=== PATIENT | male | born 1990 | race Caucasian/White ===

== ENCOUNTER 2018-08-24 12:53 | Emergency (ER) | payer SELFPAY ==
--- NOTE | 2018-08-24 13:15 | ER Document Report ---
HPI - HPI Patient complains to provider of: pruritic rash Onset: Other - 2 weeks Pain Level: 4 Context: 27 yo male with pruritic bites arms, waist, legs. Onset while staying with a friend. Saw tiny black bugs. Itches worse at night. Associated Symptoms: None Exacerbated by: Denies Relieved by: Denies Similar symptoms previously: No Recently seen / treated by doctor: No - ROS ROS below otherwise negative: Yes Systems Reviewed and Negative: Yes All other systems reviewed and negative Past Medical History - General Information source: Patient - Social History Smoking Status: Current Every Day Smoker Lives with: Family Family History: Reviewed & Not Pertinent Psychiatric Medical History: Reports: Hx Anxiety Surgical Hx: Negative - Immunizations Hx Diphtheria, Pertussis, Tetanus Vaccination: Yes - unk Hx Pneumococcal Vaccination: 11/28/00 Vertical Provider Document - CONSTITUTIONAL Agree With Documented VS: Yes Exam Limitations: No Limitations General Appearance: No Apparent Distress - INFECTION CONTROL TRAVEL OUTSIDE OF THE [place] IN LAST 30 DAYS: No - NEURO Level of Consciousness: Awake - DERM Integumentary: Rash - papular crusted isolated lesions suspicious for scabies, arms, legs, waist. 2 tinea lesions on left chest. Course - Vital Signs Vital signs: Temp Pulse Resp BP Pulse Ox 98.8 F 99 16 127/82 H 98 08/24/18 13:11 08/24/18 13:11 08/24/18 13:11 08/24/18 13:11 08/24/18 13:11 Discharge - Discharge Clinical Impression: Tinea corporis, Scabies Condition: Good Disposition: HOME, SELF-CARE Instructions: Antibiotic Shot ([facility]), Scabies ([facility]), Skin Fungus ([facility]), Topical Antifungal ([facility]) Additional Instructions: The Lamisil that she bought will work for the left knee skin fungus, rub in 1 inch past the border 3 times a day for a week The element cream is used to kill the scabies mite. Apply neck to toes between the fingers and toes including the groin and wash off in 12 hours See the wireless communications engineer if symptoms persist Prescriptions: Permethrin [Elimite] 60 gm TP ONCE PRN #60 cream.gm. PRN Reason: Referrals: MOODY CRAWFORD DO [ACTIVE STAFF] - Follow up as needed
[2018-08-24 13:38] VITALS: BP 127/82
== END 2018-08-24 13:27 | disposition home or self-care (01) ==
LOC: ER 12:53
DX: B86 Scabies (principal); B35.4 Tinea corporis; F17.200 Nicotine dependence, unspecified, uncomplicated
CPT/HCPCS: 99281

== ENCOUNTER 2019-04-19 08:22 | Emergency (ER) | payer SELFPAY ==
--- NOTE | 2019-04-19 09:28 | ER Document Report ---
HPI - HPI Patient complains to provider of: rash Time Seen by Provider: 04/19/19 08:51 Onset: Yesterday Onset/Duration: Persistent Severity: Severe Pain Level: 5 - itching Context: Patient presents emergency department with pruitic rash mostly on his arms some on his trunk and some on his ankles. He reports it started last night. He reports he is not sure where the source is. He denies new meds new laundry detergent. Reports he saw some bugs flying around. Reports he has a history of scabies in the past and thought it might be that. Denies recent trip. Reports he just moved into a new apartment and has new furniture. he has a and son and reports no rash on them. Denies other symptoms such as fever vomiting diarrhea. Patient took off his shoes and emptied the contents on the floor saying he thought he saw some bugs in them, no bugs visualized Associated Symptoms: None Exacerbated by: Denies Relieved by: Denies Similar symptoms previously: Yes Recently seen / treated by doctor: No - CONSTITUTIONAL Constitutional: DENIES: Fever, Chills - EENT EENT: DENIES: Sore Throat, Ear Pain, Eye problems - NEURO Neurology: DENIES: Headache, Weakness, Vision blurred, Dizzinesss / Vertigo - CARDIOVASCULAR Cardiovascular: DENIES: Chest pain - RESPIRATORY Respiratory: DENIES: Trouble Breathing, Coughing - GASTROINTESTINAL Gastrointestinal: DENIES: Abdominal Pain, Black / Bloody Stools - URINARY Urinary: DENIES: Dysuria, Urgency, Frequency - MUSCULOSKELETAL Musculoskeletal: DENIES: Extremity pain Past Medical History - General Information source: Patient - Social History Smoking Status: Current Every Day Smoker Chew tobacco use (# tins/day): No Frequency of alcohol use: Occasional Drug Abuse: None Lives with: Family Family History: Reviewed & Not Pertinent Patient has suicidal ideation: No Patient has homicidal ideation: No Renal/ Medical History: Denies: Hx Peritoneal Dialysis Psychiatric Medical History: Reports: Hx Anxiety Surgical Hx: Negative - Immunizations Hx Diphtheria, Pertussis, Tetanus Vaccination: Yes - unk Hx Pneumococcal Vaccination: 11/28/00 Vertical Provider Document - CONSTITUTIONAL Agree With Documented VS: Yes Exam Limitations: No Limitations General Appearance: WD/WN, No Apparent Distress - INFECTION CONTROL TRAVEL OUTSIDE OF THE [place] IN LAST 30 DAYS: No - HEENT HEENT: Atraumatic, Normocephalic - NECK Neck: Supple - RESPIRATORY Respiratory: No Respiratory Distress - CARDIOVASCULAR Cardiovascular: Regular Rate - MUSCULOSKELETAL/EXTREMETIES Musculoskeletal/Extremeties: AMISHA, TOÑO - NEURO Level of Consciousness: Awake, Alert, Appropriate Motor/Sensory: No Motor Deficit - DERM Integumentary: Warm, Dry, Rash - scattered very faint erythemic flat rash noted to bilateral arms left hand with a few scattered erythemic areas that resemble insect bites to the trunk Course - Re-evaluation Re-evalutation: 04/19/19 1 possibly ricardo noted to left hand. Will treat for scabies. Patient was instructed on directions. Instructed on importance of cleaning his house washing bedsheets and such in hot water. He was also instructed to check with his and child to make sure that they were not having same symptoms. He verbalized understanding to all instructions. - Vital Signs Vital signs: Temp Pulse Resp BP Pulse Ox 97.9 F 78 18 119/69 95 04/19/19 08:28 04/19/19 08:28 04/19/19 08:28 04/19/19 08:28 04/19/19 08:28 Discharge - Discharge Clinical Impression: Rash Condition: Stable Disposition: HOME, SELF-CARE Instructions: Use of Diphenhydramine, Scabies ([facility]) Additional Instructions: *You have been treated for rash, possibly scabies *Apply the medication as prescribed *Monitor the site for signs of infection such as pain, redness, swelling, warmth *Clean your sheets/house as discussed *Follow up with a primary care provider within one week for recheck *Return to ED for signs of infection, worsening condition, changes, needs Prescriptions: Permethrin [Elimite] 60 gm TP ONCE PRN #1 cream.gm. PRN Reason:
[2019-04-19 09:59] VITALS: BP 106/72
== END 2019-04-19 10:00 | disposition home or self-care (01) ==
LOC: ER 08:22
DX: R21 Rash and other nonspecific skin eruption (principal); F17.200 Nicotine dependence, unspecified, uncomplicated
CPT/HCPCS: 99282

== ENCOUNTER 2019-04-22 13:33 | Emergency (ER) | payer SELFPAY ==
--- NOTE | 2019-04-22 14:33 | ER Document Report ---
ED General - General Chief Complaint: Skin Sore(s) Stated Complaint: SORES ON BODY Time Seen by Provider: 04/22/19 14:31 Mode of Arrival: Ambulatory Information source: Patient Notes: This is a 28-year-old man with a recent history of scabies diagnosis (treated with permethrin) who presents to the emergency room with worsening lesions mostly on his upper extremity. He does report some in between his fingers. He states he did see a scabies-like insect on his skin. TRAVEL OUTSIDE OF THE [place] IN LAST 30 DAYS: No - HPI Onset: Last week Onset/Duration: Gradual Quality of pain: No pain, Dull Severity: None Pain Level: Denies Associated symptoms: Chest pain, Headache, Shortness of breath Exacerbated by: Denies Relieved by: Denies Similar symptoms previously: Yes Recently seen / treated by doctor: Yes - Related Data Allergies/Adverse Reactions: No Known Allergies Allergy (Verified 04/22/19 13:37) Past Medical History - General Information source: Patient - Social History Smoking Status: Current Every Day Smoker Cigarette use (# per day): No Chew tobacco use (# tins/day): No Frequency of alcohol use: Social Drug Abuse: Marijuana Lives with: Family Family History: Reviewed & Not Pertinent Patient has suicidal ideation: No Patient has homicidal ideation: No - Medical History Medical History: Negative Renal/ Medical History: Denies: Hx Peritoneal Dialysis Psychiatric Medical History: Reports: Hx Anxiety - Immunizations Hx Diphtheria, Pertussis, Tetanus Vaccination: Yes - unk Hx Pneumococcal Vaccination: 11/28/00 Review of Systems - Review of Systems Constitutional: denies: Chills, Fever EENT: No symptoms reported Cardiovascular: No symptoms reported Respiratory: No symptoms reported Gastrointestinal: No symptoms reported Genitourinary: No symptoms reported Male Genitourinary: No symptoms reported Musculoskeletal: No symptoms reported Skin: See HPI Hematologic/Lymphatic: No symptoms reported Neurological/Psychological: No symptoms reported Physical Exam - Vital signs Notes: Physical exam: GENERAL: HEAD: Atraumatic, normocephalic. EYES: Pupils equal round and reactive to light, extraocular movements intact, sclera anicteric, conjunctiva are normal. ENT: TMs normal, nares patent, oropharynx clear without exudates. Moist mucous membranes. NECK: Normal range of motion, supple without obvious mass or JVD. LUNGS: Breath sounds clear to auscultation bilaterally and equal. No wheezes rales or rhonchi. HEART: Regular rate and rhythm without murmurs, rubs or gallops. ABDOMEN: Soft, normoactive bowel sounds. No tenderness to palpation. No guarding, no rebound. No masses appreciated. EXTREMITIES: Normal range of motion, no pitting or edema. No clubbing or cyanosis. NEUROLOGICAL: Cranial nerves II through XII grossly intact. Normal speech, moving all extremities. PSYCH: Normal mood, normal affect. SKIN: She has multiple lesions on the upper extremities and some on the lower extremities where there is some localized erythema there is no obvious tracking. He does have some that involve in between the fingers. None that involve underneath the arms or in the axilla. There is none in the feet. Discharge - Discharge Clinical Impression: Scabies Condition: Stable Disposition: HOME, SELF-CARE Additional Instructions: As we discussed, I do not want you to take the permethrin for another 1 week because your last dose was 3 days ago. If you still have lesions, then you can use the cream as directed. In the meantime, use the Atarax for itching of the skin. I am concerned that you are getting secondary infections because of the skin picking that you are doing. I want you to wash daily with Hibiclens soap (sold in the pharmacy). Do not use the Hibiclens around your eyes or mouth. Use it on the skin lesions themselves. Use the bacitracin ointment daily on the lesions. Follow-up with a air surveillance operator: [facility] [place] [id number] , [place], [place] [phone] Prescriptions: Bacitracin Zinc [Bacitracin Oint 15 gm] 1 applic TP DAILY #1 tube Hydroxyzine HCl [Atarax 25 mg Tablet] 1 - 2 tab PO QID #25 tablet Permethrin [Elimite] 60 gm TP ONCE PRN #1 cream.gm. PRN Reason:
== END 2019-04-22 15:07 | disposition home or self-care (01) ==
LOC: ER 13:33
DX: B86 Scabies (principal); F17.200 Nicotine dependence, unspecified, uncomplicated
CPT/HCPCS: 99282

== ENCOUNTER 2019-04-24 12:04 | Emergency (ER) | payer SELFPAY ==
--- NOTE | 2019-04-24 12:39 | ER Document Report ---
ED Medical Screen (RME) - General Chief Complaint: Skin Sore(s) Stated Complaint: RASH/SKIN ISSUE Time Seen by Provider: 04/24/19 12:22 Mode of Arrival: Ambulatory Information source: Patient Notes: 28-year-old male presented to ED for complaint of sores to both arms both legs and abdomen and chest. He has been here multiple times and diagnosed with scabies and started on permethrin. He has no rash between his toes or between his fingers. He states he does use IV drugs heroin oxycodone oxycodone and other drugs. Patient denies using meth. Patient is alert oriented respirations regular and unlabored speaking in full sentences he does have multiple sores but no sores to his back or the back of his legs. I have greeted and performed a rapid initial assessment of this patient. A comprehensive ED assessment and evaluation of the patient, analysis of test results and completion of medical decision making process will be conducted by an additional ED providers. Dictation of this chart was performed using voice recognition software; therefore, there may be some unintended grammatical errors. TRAVEL OUTSIDE OF THE [place] IN LAST 30 DAYS: No - Related Data Allergies/Adverse Reactions: No Known Allergies Allergy (Verified 04/24/19 12:08) Past Medical History - Social History Chew tobacco use (# tins/day): No Frequency of alcohol use: Social Drug Abuse: Heroin, Prescription drugs Renal/ Medical History: Denies: Hx Peritoneal Dialysis Psychiatric Medical History: Reports: Hx Anxiety - Immunizations Hx Diphtheria, Pertussis, Tetanus Vaccination: Yes - unk Physical Exam - Vital signs Vitals: Temp Pulse Resp BP Pulse Ox 98 F 74 18 137/67 H 99 04/24/19 12:13 04/24/19 12:13 04/24/19 12:13 04/24/19 12:13 04/24/19 12:13 Course - Vital Signs Vital signs: Temp Pulse Resp BP Pulse Ox 98 F 74 18 137/67 H 99 04/24/19 12:13 04/24/19 12:13 04/24/19 12:13 04/24/19 12:13 04/24/19 12:13
[2019-04-24 12:56] LABS: ABSOLUTE EOSINOPHILS # (AUTO) 0.1 10^3/uL (0.0-0.6); ABSOLUTE MONOCYTES (AUTO) 0.5 10^3/uL (0.1-1.4); ABSOLUTE NEUT (AUTO) 6.6 10^3/uL (1.7-8.2); BASOPHILS % (AUTO) 0.5 % (0-2); EOSINOPHILS % (AUTO) 0.6 % (0-6); HEMATOCRIT 51.2 % (37.9-51.0); LYMPHOCYTES % (AUTO) 21.6 % (13-45); MEAN CORPUSCULAR HEMOGLOBIN 27.8 pg (27.0-33.4); MEAN CORPUSCULAR HGB CONC 33.2 g/dL (32.0-36.0); MEAN CORPUSCULAR VOLUME 84 fl (80-97); PLATELET COUNT 248 10^3/uL (150-450); RED BLOOD COUNT 6.12 10^6/uL (4.35-5.55); RED CELL DISTRIBUTION WIDTH 12.7 % (11.5-14.0); SEGMENTED NEUTROPHILS % (AUTO) 72.3 % (42-78); TOTAL CELLS COUNTED % (AUTO) 100 %; WHITE BLOOD COUNT 9.1 10^3/uL (4.0-10.5)
[2019-04-24 13:18] LABS: ALANINE AMINOTRANSFERASE 57 U/L (21-72); ALBUMIN 5.4 g/dL (3.5-5.0); ALKALINE PHOSPHATASE 98 U/L (38-126); ANION GAP 15 (5-19); ASPARTATE AMINO TRANSFERASE 43 U/L (17-59); BILIRUBIN,DIRECT 0.3 mg/dL (0.0-0.4); BLOOD UREA NITROGEN 14 mg/dL (7-20); CARBON DIOXIDE 27 mmol/L (22-30); CHLORIDE 101 mmol/L (98-107); GLUCOSE 93 mg/dL (75-110); POTASSIUM 4.4 mmol/L (3.6-5.0); SODIUM 143.3 mmol/L (137-145); TOTAL PROTEIN 8.7 g/dL (6.3-8.2)
[2019-04-24] MEDS ORDERED: DOXYCYCLINE HYCLATE 100 MG TABLET PO ONE (15:04)
--- NOTE | 2019-04-24 15:27 | ER Document Report ---
ED General - General Chief Complaint: Skin Sore(s) Stated Complaint: RASH/SKIN ISSUE Time Seen by Provider: 04/24/19 12:22 Primary Care Provider: [facility] [Provider Group] - Follow up in 3-5 days (primary care) Mode of Arrival: Ambulatory Notes: Patient is a 28-year-old male with history of IV drug use that presents to the emergency department for chief complaint of itching lesions. Patient states he has had skin sores on his arms and legs over the past 3 weeks, is been treated for scabies twice without improvement, he decided come back to the emergency department to have this reevaluated. Most of them are on his forearms and a few on his legs, and some on his abdomen. He has not noticed any on his back. He states he feels what he thinks is a bite, and then started scratching that area to the point it is excoriated. He had an chocolate refining roller check at his house, and was told there was nothing in the home such as bedbugs, or any evidence of other infestation. Past Medical History: IV drug use Past Surgical History: Denies surgical history Social History: Admits to smoking cigarettes, denies alcohol use, admits to injecting heroin, occasional marijuana use, and occasional cocaine use Family History: Reviewed and noncontributory for presenting illness Allergies: Reviewed, see documented allergy list. REVIEW OF SYSTEMS: Other than noted above, the 12 point review of systems was reviewed with the patient and were negative, all pertinent findings are included in the HPI. PHYSICAL EXAMINATION: Vital signs reviewed, nursing noted reviewed. GENERAL: Well-appearing, well-nourished and in no acute distress. HEAD: Atraumatic, normocephalic. EYES: Eyes appear normal, extraocular movements intact, sclera anicteric, conjunctiva are normal. ENT: nares patent, oropharynx clear without exudates. Moist mucous membranes. NECK: Normal range of motion, supple without lymphadenopathy LUNGS: Breath sounds clear to auscultation bilaterally and equal. No wheezes rales or rhonchi. HEART: Regular rate and rhythm without murmurs ABDOMEN: Soft, nontender, normoactive bowel sounds. No rebound, guarding, or rigidity. No masses appreciated. EXTREMITIES: Nontender, good range of motion, no pitting or edema. NEUROLOGICAL: No focal neurological deficits. Moves all extremities spontaneously Motor and sensory grossly intact on exam. PSYCH: Normal mood, normal affect. SKIN: Warm, Dry, normal turgor, patient has numerous excoriations noted to the forearms bilaterally, shins, and over the abdomen, there is surrounding erythema to most of these lesions, worse on the right forearm, concerning for early cellulitis. TRAVEL OUTSIDE OF THE [place] IN LAST 30 DAYS: No - Related Data Allergies/Adverse Reactions: No Known Allergies Allergy (Verified 04/24/19 12:08) Past Medical History - General Information source: Patient - Social History Smoking Status: Current Every Day Smoker Chew tobacco use (# tins/day): No Frequency of alcohol use: Social Drug Abuse: Heroin, Prescription drugs Family History: Reviewed & Not Pertinent Patient has suicidal ideation: No Patient has homicidal ideation: No Renal/ Medical History: Denies: Hx Peritoneal Dialysis Psychiatric Medical History: Reports: Hx Anxiety - Immunizations Hx Diphtheria, Pertussis, Tetanus Vaccination: Yes - unk Hx Pneumococcal Vaccination: 11/28/00 Physical Exam - Vital signs Vitals: Temp Pulse Resp BP Pulse Ox 98 F 74 18 137/67 H 99 04/24/19 12:13 04/24/19 12:13 04/24/19 12:13 04/24/19 12:13 04/24/19 12:13 Course - Re-evaluation Re-evalutation: Patient seen and examined vital signs reviewed. Laboratory data and/or imaging were ordered as appropriate for the patient's presenting symptoms and complaint, with consideration of any critical or life threatening conditions that may be associated with their obtained history and exam as noted above. Patient was treated with doxycycline p.o. 100 mg Results were reviewed when available and demonstrated unremarkable blood work, no leukocytosis The patient was re-evaluated and was stable Evaluation was most consistent with skin excoriations and cellulitis, I do feel that this patient may have neurodermatitis, and is scratching incessantly to the point where it is causing deep excoriations, he did not have any splinter hemorrhages, or any other signs of systemic infection, no audible murmur on exam. Results were discussed with the patient at this point, after careful consideration I feel that that patient can be discharged from the emergency department, the patient was educated treatments and reasons to return to the [facility] department based on their presumed diagnosis as noted above, they were advised to followup with a primary care physician in 2-3 days. Patient was agreeable to plan of care. *Note is created using voice recognition software and may contain spelling, syntax or grammatical errors. Laboratory 04/24/19 04/24/19 12:35 12:35 WBC 9.1 RBC 6.12 H Hgb 17.0 Hct 51.2 H MCV 84 MCH 27.8 MCHC 33.2 RDW 12.7 Plt Count 248 Seg Neutrophils % 72.3 Lymphocytes % 21.6 Monocytes % 5.0 Eosinophils % 0.6 Basophils % 0.5 Absolute Neutrophils 6.6 Absolute Lymphocytes 2.0 Absolute Monocytes 0.5 Absolute Eosinophils 0.1 Absolute Basophils 0.0 Sodium 143.3 Potassium 4.4 Chloride 101 Carbon Dioxide 27 Anion Gap 15 BUN 14 Creatinine 0.91 Est GFR ( Amer) > 60 Est GFR (Non-Af Amer) > 60 Glucose 93 Calcium 10.0 Total Bilirubin 1.0 Direct Bilirubin 0.3 Neonat Total Bilirubin Not Reportable Neonat Direct Bilirubin Not Reportable Neonat Indirect Bili Not Reportable AST 43 ALT 57 Alkaline Phosphatase 98 Total Protein 8.7 H Albumin 5.4 H - Vital Signs Vital signs: Temp Pulse Resp BP Pulse Ox 97.4 F 84 16 117/71 99 04/24/19 16:12 04/24/19 16:12 04/24/19 16:12 04/24/19 16:12 04/24/19 16:12 - Laboratory Result Diagrams: 04/24/19 12:35 04/24/19 12:35 Laboratory results interpreted by me: 04/24/19 04/24/19 12:35 12:35 RBC 6.12 H Hct 51.2 H Total Protein 8.7 H Albumin 5.4 H Discharge - Discharge Clinical Impression: Skin excoriation Cellulitis Qualifiers: Site of cellulitis: extremity Site of cellulitis of extremity: upper extremity Laterality: unspecified laterality Qualified Code(s): L03.119 - Cellulitis of unspecified part of limb Condition: Stable Disposition: HOME, SELF-CARE Instructions: Cellulitis ([facility]) Additional Instructions: Please complete the entire course of antibiotics, and take the previously prescribed hydroxyzine/Atarax, 1 to 2 tablets every 6 hours to help with itching. Please follow-up with your primary care physician as well. If you develop fevers, or your symptoms are not improving over the next few days, do not hesitate to return to the emergency department. Avoid scratching as much as possible as this will only make your wounds worse. Prescriptions: RX: Doxycycline Hyclate 100 mg PO BID #14 capsule Referrals: [facility] [Provider Group] - Follow up in 3-5 days (primary care)
[2019-04-24 16:12] VITALS: BP 117/71
== END 2019-04-24 16:15 | disposition home or self-care (01) ==
LOC: ER 12:04
DX: L03.119 Cellulitis of unspecified part of limb (principal); L98.1 Factitial dermatitis; F17.210 Nicotine dependence, cigarettes, uncomplicated
CPT/HCPCS: 36415; 80053; 85025; 87040; 99283